=== PATIENT | female | born 1965 | race African-American/Black ===

== ENCOUNTER 2017-06-08 08:32 | Emergency (ER) | payer OTHER ==
[~2017-06-08] VITALS: Ht 162.6 cm; Wt 61.2 kg
--- NOTE | ~2017-06-08 | EKG ---
[address] [address] ELECTROCARDIOGRAM REPORT Name: KINGSTONGERALDGIANCARLO ZAMORA [id number] Admission: 06/08/17 Attend Phys: Discharge: 06/08/17 Date of : 61 Report #: [id number] THIS REPORT FOR: //name// [facility] ED Test Date: 2017-06-08 Test Time: 08:42:03 Pat Name: GERALD ONOFRE Department: Room: Gender: F [employer] Machine Operator: [facility] : 1965 Requested By: Sydni Chao Order Number: [id number] MD: Az Pelaez Measurements Intervals [place] Rate: 69 P: 66 IN: 162 QRS: 35 QRSD: 102 T: 31 QT: 393 QTc: 421 Interpretive Statements Sinus rhythm Compared to ECG 02/08/2008 10:50:13 T-wave abnormality no longer present Electronically Signed On 06-08-2017 22:27:22 [employer] by Az Pelaez [email or web address] <ELECTRONICALLY SIGNED> By: Az Pelaez MD 06/08/17 [id number] MD OSORIO Marroquin
[2017-06-08 09:07] LABS: HEMOGLOBIN 13.6 gm/dL (12.0-15.0); MCHC 34.1 g/dL (28.0-37.0); MCV 82.2 fL (80.0-100.0); PLATELET COUNT 163 thou/uL (150-400); RBC 4.86 mil/uL (4.20-5.00); RDW 12.8 % (10.5-14.5); WBC 3.3 thou/uL (4.0-11.0)
[2017-06-08 09:14] LABS: ANION GAP 7 mmol/L (7-16); BUN 7 mg/dL (7-18); CALCIUM 9.2 mg/dL (8.5-10.1); CHLORIDE 105 mmol/L (98-107); CO2 29 mmol/L (21-32); CREATININE 0.8 mg/dL (0.6-1.0); GLUCOSE 92 mg/dL (74-106); POTASSIUM 3.5 mmol/L (3.5-5.1); SODIUM 141 mmol/L (136-145)
[2017-06-08 09:22] LABS: ALBUMIN 3.8 g/dL (3.4-5.0); SGOT 33 U/L (15-37); SGPT 39 U/L (30-65); TOTAL BILIRUBIN 0.5 mg/dL (<0.1-1.0); TOTAL PROTEIN 7.5 g/dL (6.4-8.2); TROPONIN-I < 0.04 ng/mL (<0.06)
[2017-06-08 09:57] LABS: ABSOLUTE NEUTROPHILS 2.4 thou/uL (1.4-8.2)
== END 2017-06-08 11:21 | disposition home or self-care (01) ==
LOC: ER 08:32
PROVIDERS: Emergency Medicine
DX: R07.9 Chest pain, unspecified (principal); E78.5 Hyperlipidemia, unspecified; Z90.710 Acquired absence of both cervix and uterus; Z88.6 Allergy status to analgesic agent